=== PATIENT | male | born 1990 | race Two or more races ===

== ENCOUNTER 2025-01-27 01:59 | Emergency (ER) | payer MEDICAID, OTHER ==
[~2025-01-27] VITALS: Ht 165.1 cm; Wt 63.6 kg
[2025-01-27] MEDS: SODIUM CHLORIDE 0.9% 1,000 ML IV ONE (05:31)
--- NOTE | 2025-01-27 05:32 | ED.PDOC ---
Psychiatric HPI Comments REPORTS USING METH TODAY WITH FRIENDS, BEGAN TO HALLUCINATE AND EXPERIENCE INCREASED ANXIETY DUE TO FRIENDS STATING THAT TALKING TO SELF, PACING, AND FEELING ANXIOUS ARE S/S OF HEART ATTACK. PATIENT BELIEVES THAT HE COULD POSSIBLY BE EXPERIENCING A HEART ATTACK FROM BEING ANXIOUS AND TAKING METH. REPORTS WANTING TO GET ASSESSED TO RULE OUT. DENIES CP, RADHA, SOB, N/V/D, DANIELS, WEAKNESS, NUMBNESS, SLURRED SPEECH. Chief Complaint: Anxiety Time Seen by MD: 02:15 Reviewed Notes: Nurses Notes, Medications, Allergies Information Source: Patient Mode of Arrival: EMS Past Medical History PAST MEDICAL HISTORY: Denies Surgical History: Denies all surgeries Family History Family History: Reviewed,noncontributory to illness, No family hx of Cancer, No family hx of DM, No family hx of Heart fritz, No family hx of HTN, No family hx ofKidney fritz, No family hx of Liver fritz, No family hx of Lung fritz, No family hx of Stroke Social History Smoker: Non-Smoker Alcohol: Denies ETOH Use Drugs: Denies Drug Use Constitutional: denies: chills, diaphoresis, fatigue, fever, malaise, sweats, weakness, others EENTM: denies: blurred vision, double vision, ear bleeding, ear discharge, ear drainage, ear pain, ear ringing, eye pain, eye redness, hearing loss, mouth pain, mouth swelling, nasal discharge, nose bleeding, nose congestion, nose pain, photophobia, tearing, throat pain, throat swelling, voice changes, others Respiratory: denies: cough, hemoptysis, orthopnea, SOB at rest, shortness of breath, SOB with excertion, stridor, wheezing, others Cardiovascular: denies: chest pain, dizzy spells, diaphoresis, Dyspnea on exertion, edema, irregular heart beat, left arm pain, lightheadedness, palpitations, PND, syncope, others Gastrointestinal: denies: abdomen distended, abdominal pain, blood streaked bowels, constipated, diarrhea, dysphagia, difficulty swallowing, hematemesis, melena, nausea, poor appetite, poor fluid intake, rectal bleeding, rectal pain, vomiting, others Genitourinary: denies: burning, dysuria, flank pain, frequency, hematuria, incontinence, penile discharge, penile sore, pain, testicle pain, testicle swelling, urgency, others Neurological: denies: dizziness, fainting, headache, left sided numbness, left sided weakness, numbness, paresthesia, pre-existing deficit, right sided numbness, right sided weakness, seizure, speech problems, tingling, tremors, weakness, others Musculoskeletal: denies: back pain, gout, joint pain, joint swelling, muscle pain, muscle stiffness, neck pain, others Integumetry: denies: bruises, change in color, change in hair/nails, dryness, laceration, lesions, lumps, rash, wounds, others Allergic/Immunocompromised: denies: Difficulty Healing, Frequent Infections, Hives, Itching, others Hematologic/Lymphatic: denies: anemia, blood clots, easy bleeding, easy bruising, swollen glands, others Endocrine: denies: excessive hunger, excessive sweating, excessive thirst, excessive urination, flushing, intolerance to cold, intolerance to heat, unexplained weight gain, unexplained weight loss, others Psychiatric: reports: anxiety Physical Exam General Appearance: No Apparent Distress, Normal HEENT: Normal ENT Inspection, Pharynx Normal, TMs Normal Neck: Full Range of Motion, Non-Tender Respiratory: Chest Non-Tender, Lungs Clear, No Respiratory Distress, Normal Breath Sounds Cardiovascular: No Edema, No JVD, No Murmur, No Gallop, Normal Peripheral Pulses, Regular Rate/Rhythm Breast Exam: Deferred Gastrointestinal: No Organomegaly, Non Tender, No Pulsatile Mass, Normal Bowel Sounds, Soft Genitalia: Deferred Pelvic: Deferred Rectal: Deferred Extremities: Normal range of motion, No pedal edema Musculoskeletal : Apperance: Normal Neurologic: Alert, No Motor Deficits, Normal Affect, Normal Mood, No Sensory Deficits Cerebellar Function: Normal Reflexes: NOT DONE Skin: Dry, Normal Color, Warm Lymphatic: No Adenopathy Was a procedure done? Was a procedure done?: No Psych Differential Dx Psych. Differential Dx: Panic Disorder OD Differential Dx: Bipolar Disorder, Schizophrenia X-Ray, Labs, Meds, VS Vital Signs Date Time Temp Pulse Resp B/P (MAP) Pulse Ox O2 Delivery O2 Flow Rate FiO2 01/27/25 05:56 92 20 98 Room Air 01/27/25 05:56 97.7 92 20 128/66 (86) 98 97.7 01/27/25 02:05 105 01/27/25 02:00 98.4 121 18 145/87 99 98.4 X-Ray, Labs, Meds, VS Comment Patient given Ativan 0.5 mg and normal saline bolus IV. Reports improvement in symptoms patient is requesting discharge at this time. Advised to refrain from the use of meth. Rest increase p.o. fluids with electrolytes. Follow up with your PCP in 2-3 days as necessary ER return precautions given patient indicates understanding agrees with discharge plan of care Time of 1ST Reevaluation: 02:40 Reevaluation 1ST: Unchanged Time of 2ND Reevaluation: 05:31 Reevaluation 2ND: Improved Patient Education/Counseling: Diagnosis, Treatment, Prognosis, Need For Follow Up Family Education/Counseling: No Family Present Departure 1 Departure Time of Disposition: 05:30 Impression: Primary Impression: Panic attack Disposition: 01 HOME / SELF CARE / HOMELESS Condition: Stable Discharged With: Self Critical Care Note Critical Care Time?: No Stability Stability form required: FRANCO Ta Jan 27, 2025 05:32
[2025-01-27] MEDS: LORazepam 0.5 MG TAB PO ONE (05:50)
[2025-01-27 05:56] VITALS: BP 128/66; PULSE 92; RESP 20; TEMP 97.7; O2SAT 98
== END 2025-01-27 05:56 | disposition home or self-care (01) ==
LOC: ER 01:59 → EDBD 01:59 → ER 05:56
DX: F41.0 Panic disorder [episodic paroxysmal anxiety] (principal); R44.3 Hallucinations, unspecified